=== PATIENT | male | born 1970 | race African-American/Black ===

== ENCOUNTER 2020-03-09 18:20 | Emergency (ER) | payer MEDICAID, OTHER ==
[~2020-03-09] VITALS: Ht 177.8 cm; Wt 68.0 kg
[2020-03-09] MEDS ORDERED: MAGNESIUM/ALUMINUM HYDROXIDE/SIMETHICONE 30ML UDC PO STA (18:55)
[2020-03-09] MEDS ORDERED: ACETAMINOPHEN 325MG TABLET PO STA (18:55)
[2020-03-09 20:43] LABS: CLARITY URINE CLEAR (CLEAR); COLOR URINE YELLOW (YELLOW); KETONES URINE NEGATIVE (NEGATIVE); LEUKOCYTE ESTERASE URINE 2+ (NEGATIVE); NITRITE URINE NEGATIVE (NEGATIVE); OCCULT BLOOD URINE NEGATIVE (NEGATIVE); PH URINE 7.5 (4.5-8.0); PROTEIN URINE 2+ (NEGATIVE); SPECIFIC GRAVITY URINE 1.015 (1.005-1.030)
[2020-03-09 20:56] LABS: *AMPHETAMINES SCREEN URINE NEGATIVE (NEGATIVE); *BARBITURATES SCREEN URINE NEGATIVE (NEGATIVE); *BENZODIAZEPINES SCREEN URINE PRESUMTIVE POSITIVE (NEGATIVE)
[2020-03-09 20:57] LABS: *COCAINE SCREEN URINE NEGATIVE (NEGATIVE); CANNABINOID URINE SCREEN NEGATIVE (NEGATIVE); METHADONE URINE SCREEN NEGATIVE (NEGATIVE); OPIATES URINE SCREEN NEGATIVE (NEGATIVE); PHENCYCLIDINE URINE SCREEN NEGATIVE (NEGATIVE)
[2020-03-09 22:03] LABS: BASOPHILS % 0.4 % (0.0-2.0); HEMOGLOBIN. 12.5 g/dL (14.0-18.0); LYMPHOCYTES % 8.8 % (20.0-50.0); MEAN CORPUSCULAR HEMOGLOBIN 27.9 pg (28.0-32.0); MEAN CORPUSCULAR VOLUME 85.1 fL (80.0-94.0); MEAN PLATELET VOLUME 7.9 fl (7.4-10.4); MONOCYTES % 10.5 % (2.0-8.0); NEUTROPHILS % 80.3 % (40.0-76.0); PLATELET 114 x1000/uL (130-400); RED BLOOD CELL COUNT 4.46 mill/uL (4.7-6.1); RED CELL DISTRIBUTION WIDTH 14.5 % (11.6-14.6)
[2020-03-09 22:08] LABS: CHLORIDE 98 mEq/L (98-107)
[2020-03-09 22:14] LABS: ETHANOL BLOOD < 10 mg/dL
[2020-03-09] MEDS ORDERED: CEPHALEXIN 250MG CAPSULE PO ONE (23:00)
[2020-03-09] MEDS ORDERED: IBUPROFEN 600MG TABLET PO ONE (23:00)
[2020-03-09] MEDS ORDERED: ACETAMINOPHEN 325MG TABLET PO ONE (23:30)
[2020-03-10 03:00] VITALS: BP 128/89
== END 2020-03-10 06:45 | disposition home or self-care (01) ==
LOC: ER 18:20
DX: N30.90 Cystitis, unspecified without hematuria (principal); S52.122A Displaced fracture of head of left radius, initial encounter for closed fracture; X58.XXXA Exposure to other specified factors, initial encounter; Y93.89 Activity, other specified; Y92.89 Other specified places as the place of occurrence of the external cause; R03.0 Elevated blood-pressure reading, without diagnosis of hypertension; G40.909 Epilepsy, unspecified, not intractable, without status epilepticus
CPT/HCPCS: 29105; 36415; 71045; 73030; 73080; 80053; 80305; 80320; 81003; 85025; 93005; 99285; G0480

== ENCOUNTER 2020-04-12 22:04 | Inpatient (IN) | payer MEDICAID ==
[~2020-04-12] VITALS: Ht 172.7 cm; Wt 81.6 kg
[~2020-04-12 22:04] MED LIST: ALLO100T PO; ATOR20TA65 MT; FOLI0.4T2 MT; GABA-531 PO; KEPP500 MT; MULT-1146 MT; OMEP20CA14 MT; THIA100T88 MT
[2020-04-12] MEDS ORDERED: SODIUM CHLORIDE 0.9% 1,000 ML IV ONE (23:02)
[2020-04-12] MEDS ORDERED: PANTOPRAZOLE SODIUM 40 MG/VIAL IV ONE (23:15)
[2020-04-13 00:02] LABS: BASOPHILS % 1.3 % (0.0-2.0); EOSINOPHILS % 0.1 % (0.0-5.0); HEMATOCRIT. 40.5 % (42.0-52.0); HEMOGLOBIN. 13.3 g/dL (14.0-18.0); LYMPHOCYTES % 54.3 % (20.0-50.0); MEAN CORPUSCULAR HEMOGLOBIN 27.9 pg (28.0-32.0); MEAN CORPUSCULAR VOLUME 84.9 fL (80.0-94.0); MEAN PLATELET VOLUME 7.6 fl (7.4-10.4); MONOCYTES % 13.1 % (2.0-8.0); NEUTROPHILS % 31.2 % (40.0-76.0); PLATELET 101 x1000/uL (130-400); RED BLOOD CELL COUNT 4.77 mill/uL (4.7-6.1); RED CELL DISTRIBUTION WIDTH 15.9 % (11.6-14.6)
[2020-04-13 00:06] LABS: CHLORIDE 102 mEq/L (98-107)
[2020-04-13 00:10] LABS: INR 1.1; PROTHROMBIN TIME 11.2 sec (9.6-11.0)
[2020-04-13 00:20] LABS: ETHANOL BLOOD 361 mg/dL
[2020-04-13 01:17] LABS: CLARITY URINE CLEAR (CLEAR); COLOR URINE YELLOW (YELLOW); KETONES URINE NEGATIVE (NEGATIVE); LEUKOCYTE ESTERASE URINE NEGATIVE (NEGATIVE); NITRITE URINE NEGATIVE (NEGATIVE); OCCULT BLOOD URINE 1+ (NEGATIVE); PROTEIN URINE 3+ (NEGATIVE); SPECIFIC GRAVITY URINE 1.012 (1.005-1.030); UROBILINOGEN URINE 0.2 E.U./dL (0.2-1.0)
[2020-04-13 01:43] LABS: *AMPHETAMINES SCREEN URINE NEGATIVE (NEGATIVE); *BARBITURATES SCREEN URINE NEGATIVE (NEGATIVE); *BENZODIAZEPINES SCREEN URINE NEGATIVE (NEGATIVE); *COCAINE SCREEN URINE NEGATIVE (NEGATIVE)
[2020-04-13 01:44] LABS: CANNABINOID URINE SCREEN NEGATIVE (NEGATIVE); METHADONE URINE SCREEN NEGATIVE (NEGATIVE); OPIATES URINE SCREEN NEGATIVE (NEGATIVE); PHENCYCLIDINE URINE SCREEN NEGATIVE (NEGATIVE)
[2020-04-13] MEDS ORDERED: CEFTRIAXONE 1 G PREMIX 50 ML IV ONE (02:15)
[2020-04-13] MEDS ORDERED: POTASSIUM CHLORIDE 20MEQ TABLET SR PO ONE (02:15)
[2020-04-13 03:00] VITALS: BP 135/91
[2020-04-13 04:00] VITALS: BP 114/77
[2020-04-13] MEDS: HYDROCODONE/ACETAMINOPHEN 5/325MG TABLET PO PRN (06:05)
[2020-04-13 09:26] LABS: BASOPHILS % 0.6 % (0.0-2.0); EOSINOPHILS % 0.3 % (0.0-5.0); HEMATOCRIT. 39.4 % (42.0-52.0); HEMOGLOBIN. 12.9 g/dL (14.0-18.0); LYMPHOCYTES % 27.3 % (20.0-50.0); MEAN CORPUSCULAR VOLUME 85.8 fL (80.0-94.0); MONOCYTES % 10.4 % (2.0-8.0); NEUTROPHILS % 61.4 % (40.0-76.0); PLATELET 92 x1000/uL (130-400); RED BLOOD CELL COUNT 4.59 mill/uL (4.7-6.1); RED CELL DISTRIBUTION WIDTH 16.3 % (11.6-14.6)
[2020-04-13] MEDS: PANTOPRAZOLE SODIUM 40 MG/VIAL IV SCH ×2 (09:26→20:46)
[2020-04-13] MEDS ORDERED: HYDROMORPHONE HCL/PF 2MG/ML CPJ IV PRN (09:30)
[2020-04-13] MEDS ORDERED: CLONIDINE 0.1MG TABLET PO PRN (09:30)
[2020-04-13] MEDS ORDERED: IPRATROPIUM/ALBUTEROL 0.5-3(2.5)MG/3ML NEB HHN PRN (09:30)
[2020-04-13] MEDS ORDERED: LORAZEPAM 2MG/ML CPJ IV PRN (09:30)
[2020-04-13] MEDS: ONDANSETRON HCL 4MG/2ML INJ IV PRN (11:48)
[2020-04-13] MEDS: DEXT 5%/LACTATED RINGERS 1,000 ML IV SCH ×2 (11:49→20:44)
[2020-04-13 12:14] VITALS: BP 128/89
[2020-04-13] MEDS ORDERED: SODIUM CHLORIDE 0.9% 500 ML IV ONE (13:00)
[2020-04-13] MEDS ORDERED: HYDROMORPHONE HCL/PF 2MG/ML CPJ IV SCH (13:00)
[2020-04-13] MEDS: HYDROMORPHONE HCL/PF 2MG/ML CPJ IV PRN ×2 (14:57→20:45)
[2020-04-13] MEDS: ONDANSETRON HCL 4MG/2ML INJ IV NR ×2 (15:43→20:44)
[2020-04-13] MEDS ORDERED: SODIUM CHLORIDE 0.9% 500 ML IV NR (16:00)
[2020-04-13 16:04] VITALS: BP 118/74
[2020-04-13 16:29] LABS: BASOPHILS % 0.4 % (0.0-2.0); EOSINOPHILS % 0.1 % (0.0-5.0); HEMATOCRIT. 39.4 % (42.0-52.0); HEMOGLOBIN. 12.7 g/dL (14.0-18.0); LYMPHOCYTES % 27.7 % (20.0-50.0); MEAN CORPUSCULAR HEMOGLOBIN 27.8 pg (28.0-32.0); MEAN CORPUSCULAR VOLUME 86.3 fL (80.0-94.0); MEAN PLATELET VOLUME 8.1 fl (7.4-10.4); NEUTROPHILS % 61.8 % (40.0-76.0); PLATELET 86 x1000/uL (130-400); RED BLOOD CELL COUNT 4.56 mill/uL (4.7-6.1); RED CELL DISTRIBUTION WIDTH 16.3 % (11.6-14.6)
[2020-04-13] MEDS: METOCLOPRAMIDE HCL 10MG/2ML VIAL IV SCH (17:48)
[2020-04-13 20:12] VITALS: BP 132/88
[2020-04-14 00:55] VITALS: BP 152/94
[2020-04-14 04:00] VITALS: BP 144/104
[2020-04-14] MEDS: HYDROCODONE/ACETAMINOPHEN 5/325MG TABLET PO PRN (04:32)
[2020-04-14] MEDS: DEXT 5%/LACTATED RINGERS 1,000 ML IV SCH ×2 (05:24→15:06)
[2020-04-14] MEDS: METOCLOPRAMIDE HCL 10MG/2ML VIAL IV SCH ×4 (06:00→17:30)
[2020-04-14 07:04] LABS: BASOPHILS % 0.3 % (0.0-2.0); EOSINOPHILS % 0.1 % (0.0-5.0); HEMATOCRIT. 38.7 % (42.0-52.0); HEMOGLOBIN. 12.8 g/dL (14.0-18.0); LYMPHOCYTES % 11.9 % (20.0-50.0); MEAN CORPUSCULAR VOLUME 84.9 fL (80.0-94.0); MEAN PLATELET VOLUME 7.9 fl (7.4-10.4); MONOCYTES % 11.2 % (2.0-8.0); NEUTROPHILS % 76.5 % (40.0-76.0); PLATELET 73 x1000/uL (130-400); RED BLOOD CELL COUNT 4.56 mill/uL (4.7-6.1); RED CELL DISTRIBUTION WIDTH 16.2 % (11.6-14.6)
[2020-04-14 07:14] LABS: CHLORIDE 102 mEq/L (98-107)
[2020-04-14 07:25] LABS: AMYLASE 108 IU/L (25-115)
[2020-04-14 07:27] LABS: PHOSPHORUS 2.8 mg/dL (2.5-4.9)
[2020-04-14 08:00] VITALS: BP 157/88
[2020-04-14] MEDS ORDERED: METHYLPREDNISOLONE SOD SUCC 125 MG/2 ML VIAL IV SCH (10:00)
[2020-04-14] MEDS ORDERED: COLCHICINE 0.6MG TABLET PO SCH (10:00)
[2020-04-14] MEDS ORDERED: MAGNESIUM SULFATE 6 GM in SODIUM CHLORIDE 0.9% 250 ML IV SCH (10:00)
[2020-04-14] MEDS: PANTOPRAZOLE SODIUM 40 MG/VIAL IV SCH ×2 (10:58→20:59)
[2020-04-14] MEDS: ONDANSETRON HCL 4MG/2ML INJ IV PRN ×2 (10:58→21:12)
[2020-04-14] MEDS: HYDROMORPHONE HCL/PF 2MG/ML CPJ IV PRN ×3 (10:59→20:58)
[2020-04-14] MEDS ORDERED: ONDANSETRON 4MG ODT PO SCH (11:00)
[2020-04-14 12:00] VITALS: BP 169/94
[2020-04-14] MEDS: ALLOPURINOL 100 MG TABLET PO SCH ×2 (13:29→17:27)
[2020-04-14] MEDS: AMLODIPINE 5MG TABLET PO SCH (13:30)
[2020-04-14] MEDS: LEVETIRACETAM 500MG TABLET PO SCH ×2 (13:30→20:59)
[2020-04-14 15:00] VITALS: BP 143/87
[2020-04-15] VITALS: BP 132/89
[2020-04-15] MEDS: METOCLOPRAMIDE HCL 10MG/2ML VIAL IV SCH ×4 (00:44→17:04)
[2020-04-15] MEDS: HYDROMORPHONE HCL/PF 2MG/ML CPJ IV PRN (02:49)
[2020-04-15 04:00] VITALS: BP 131/77
[2020-04-15] MEDS ORDERED: MAGNESIUM 2 G PREMIX 50 ML IV SCH (06:00)
[2020-04-15 07:01] LABS: HEMATOCRIT. 35.4 % (42.0-52.0); HEMOGLOBIN. 11.8 g/dL (14.0-18.0); MEAN CORPUSCULAR VOLUME 84.3 fL (80.0-94.0); MEAN PLATELET VOLUME 8.2 fl (7.4-10.4); PLATELET 83 x1000/uL (130-400); RED CELL DISTRIBUTION WIDTH 15.7 % (11.6-14.6)
[2020-04-15 07:07] LABS: CHLORIDE 99 mEq/L (98-107)
[2020-04-15 07:19] LABS: PHOSPHORUS 2.2 mg/dL (2.5-4.9)
[2020-04-15 08:00] VITALS: BP 121/85
[2020-04-15] MEDS: AMLODIPINE 5MG TABLET PO SCH (08:37)
[2020-04-15] MEDS: PANTOPRAZOLE SODIUM 40 MG/VIAL IV SCH ×2 (08:59→20:59)
[2020-04-15] MEDS: LEVETIRACETAM 500MG TABLET PO SCH ×2 (08:59→20:59)
[2020-04-15] MEDS: COLCHICINE 0.6MG TABLET PO SCH ×2 (08:59→20:59)
[2020-04-15] MEDS: ALLOPURINOL 100 MG TABLET PO SCH ×2 (09:00→17:03)
[2020-04-15 10:37] LABS: PLATELET ESTIMATE DECREASED
[2020-04-15] MEDS: DEXT 5%/LACTATED RINGERS 1,000 ML IV SCH (11:52)
[2020-04-15 12:00] VITALS: BP 121/82
[2020-04-15] MEDS ORDERED: MAGNESIUM 2 G PREMIX 50 ML IV ONE (14:30)
[2020-04-15] MEDS ORDERED: MAGNESIUM 4 G PREMIX 100 ML IV ONE (14:30)
[2020-04-15] MEDS ORDERED: AMLO5TAB88 PO (14:34)
[2020-04-15] MEDS ORDERED: COLC0.6C3 MT (14:34)
[2020-04-15] MEDS ORDERED: MAGN400T26 MT (14:34)
[2020-04-15] MEDS ORDERED: PANT40TA4 MT (14:34)
[2020-04-15] MEDS ORDERED: DEXT 5% IV SCH (15:30)
[2020-04-15] MEDS ORDERED: WATER IV SCH (15:30)
[2020-04-15] MEDS ORDERED: MAGNESIUM SULFATE IV SCH (15:30)
[2020-04-15 16:00] VITALS: BP 125/77
[2020-04-15] MEDS: HYDROCODONE/ACETAMINOPHEN 5/325MG TABLET PO PRN (17:17)
[2020-04-15 20:00] VITALS: BP 137/79
== END 2020-04-15 21:45 | disposition home or self-care (01) | DRG 282 ==
LOC: ER 22:04 → 6WST 04-13 02:11 → ENRESERV 04-13 02:26 → 6EST 04-14 17:52
PROVIDERS: ADMIT Internal Medicine; ATTEND Internal Medicine
PROC: B5181ZA Fluoroscopy of Superior Vena Cava using Low Osmolar Contrast, Guidance (ICD-10-PCS; principal; 2020-04-14)
PROC: 02HV33Z Insertion of Infusion Device into Superior Vena Cava, Percutaneous Approach (ICD-10-PCS; 2020-04-14)
PROC: B548ZZA Ultrasonography of Superior Vena Cava, Guidance (ICD-10-PCS; 2020-04-14)
DX: K85.20 Alcohol induced acute pancreatitis without necrosis or infection (principal); D64.9 Anemia, unspecified; D69.6 Thrombocytopenia, unspecified; E87.6 Hypokalemia; F10.229 Alcohol dependence with intoxication, unspecified; F20.9 Schizophrenia, unspecified; G40.909 Epilepsy, unspecified, not intractable, without status epilepticus; I10 Essential (primary) hypertension; J45.909 Unspecified asthma, uncomplicated; J98.11 Atelectasis; K22.6 Gastro-esophageal laceration-hemorrhage syndrome; K21.9 Gastro-esophageal reflux disease without esophagitis; M10.9 Gout, unspecified; Z79.51 Long term (current) use of inhaled steroids; Q45.3 Other congenital malformations of pancreas and pancreatic duct; Z79.899 Other long term (current) drug therapy; R80.9 Proteinuria, unspecified
CPT/HCPCS: 36415; 36573; 71045; 74176; 80048; 80053; 80305; 80320; 81003; 82150; 83735; 84100; 84484; 85025; 93005; 96365; 99285; C1725; C9113; J0696; J1170; J2060; J2405; J2765; J2930; J3475; J7030; J7050; J7060; J7121; Q0162; G0480